=== PATIENT | male | born 1965 | race Caucasian/White ===

== ENCOUNTER 2018-04-20 16:03 | Emergency (ER) | payer OTHER ==
[2018-04-20] MEDS ORDERED: Lidocaine 2% 5 ML SDV ONE (16:45)
[2018-04-20] MEDS ORDERED: Lidocaine 2% 5 ML SDV INFILT ONE (16:59)
--- NOTE | 2018-04-20 17:16 | EDM.PDOC ---
ED HPI GENERAL MEDICAL PROBLEM - General Chief Complaint: General Stated Complaint: TICK IN EAR Time Seen by Provider: 04/20/18 17:11 Source of Information: Reports: Patient History Limitations: Reports: No Limitations - History of Present Illness INITIAL COMMENTS - FREE TEXT/NARRATIVE: Patient is a 52-year-old gentleman who presents emergency department this afternoon with a complaint of left ear discomfort with suspected insect or foreign body. Patient states that symptoms began yesterday and used a Q-tip, but symptoms did not subside. looked in the ear and thought she saw an insect. Patient denies no other visible insects on his body. Patient denies vertigo, fever, chest pain, shortness of breath, nausea, or vomiting. Onset Date: 04/19/18 Duration: Day(s): Location: Reports: Other (Left ear) Quality: Reports: Ache Severity: Mild Improves with: Reports: None Worsens with: Reports: None Context: Reports: Other (Suspected insect) Associated Symptoms: Reports: No Other Symptoms - Related Data Allergies Allergy/AdvReac Type Severity Reaction Status Date / Time No Known Drug Allergies Allergy Cannot Verified 04/20/18 16:16 Remember Home Meds: Home Meds Hydrocort/Neomycin/Polymyxin B [Hufleumh-Fnsidxeym-HM Otic Susp] 10 ml .XX TID 5 Days #1 bottle 04/20/18 [Rx] Past Medical History HEENT History: Reports: Hard of Hearing, Impaired Vision Cardiovascular History: Reports: Bypass, Heart Murmur, High Cholesterol, Hypertension, SOB on Exertion, Other (See Below) Other Cardiovascular History: leaky valves x 3 Respiratory History: Reports: Bronchitis, Recurrent, COPD, Pneumonia, Recurrent , SOB Gastrointestinal History: Reports: Colon Polyp, GERD Genitourinary History: Reports: None Musculoskeletal History: Reports: Arthritis, Back Pain, Chronic, Fracture, Fibromyalgia Neurological History: Reports: Concussion, Neuropathy, Peripheral Psychiatric History: Reports: Anxiety, Depression Endocrine/Metabolic History: Reports: None Hematologic History: Reports: None Immunologic History: Reports: None Oncologic (Cancer) History: Reports: Hodgkin's Lymphoma, Other (See Below) Other Oncologic History: kidney cancer Dermatologic History: Reports: None - Infectious Disease History Infectious Disease History: Reports: Chicken Pox - Past Surgical History HEENT Surgical History: Reports: None Cardiovascular Surgical History: Reports: Coronary Artery Bypass Other Cardiovascular Surgeries/Procedures: CABG X 4 Respiratory Surgical History: Reports: None GI Surgical History: Reports: Appendectomy, Cholecystectomy, Colonoscopy Male Surgical History: Reports: Nephrectomy Other Male Surgeries/Procedures: right nephrectomy Endocrine Surgical History: Reports: None Neurological Surgical History: Reports: Lumbar Spine Musculoskeletal Surgical History: Reports: Carpal Tunnel Oncologic Surgical History: Reports: None Dermatological Surgical History: Reports: None Social & Family History - Family History Family Medical History: Unobtainable - Tobacco Use Smoking Status *Q: Former Smoker Used Tobacco, but Quit: Yes Month/Year Tobacco Last Used: 2012 Second Hand Smoke Exposure: No - Caffeine Use Caffeine Use: Reports: Coffee, Energy Drinks, Soda, Tea - Recreational Drug Use Recreational Drug Use: Yes Recreational Drug Type: Reports: Methamphetamine Recreational Drug Use Frequency: Not Used In Over 6 Months ED ROS GENERAL - Review of Systems Review Of Systems: ROS reveals no pertinent complaints other than HPI. Constitutional: Reports: No Symptoms HEENT: Reports: Ear Pain, Other (Suspected foreign body in left ear) Respiratory: Reports: No Symptoms Cardiovascular: Reports: No Symptoms Endocrine: Reports: No Symptoms GI/Abdominal: Reports: No Symptoms : Reports: No Symptoms Musculoskeletal: Reports: No Symptoms Skin: Reports: No Symptoms Neurological: Reports: No Symptoms Psychiatric: Reports: No Symptoms Hematologic/Lymphatic: Reports: No Symptoms Immunologic: Reports: No Symptoms ED EXAM, GENERAL - Physical Exam Exam: See Below Exam Limited By: No Limitations General Appearance: Alert, WD/WN, No Apparent Distress Eye Exam: Bilateral Eye: Normal Inspection Ears: Normal External Exam, Other (Left ear has scant amount of jian red blood , with scab on the superior portion of the TM. No canal edema or erythema. No body or insect appreciated.) Throat/Mouth: Normal Inspection, Normal Oropharynx, No Airway Compromise Head: Atraumatic, Normocephalic Respiratory/Chest: No Respiratory Distress Neurological: Alert, Oriented, Normal Cognition Psychiatric: Normal Affect, Normal Mood Skin Exam: Warm, Dry, Intact, Normal Color, No Rash Lymphatic: No Adenopathy Course - Vital Signs Last Recorded V/S: Last Vital Signs Temp 96.3 F 04/20/18 16:10 Pulse 73 04/20/18 16:10 Resp 20 04/20/18 16:10 BP 115/65 04/20/18 16:10 Pulse Ox 96 04/20/18 16:10 - Orders/Labs/Meds Meds: Medications Discontinued Medications Generic Name Dose Route Start Last Admin Trade Name Jean Carlos PRN Reason Stop Dose Admin Lidocaine Confirm 04/20/18 16:45 Xylocaine-Mpf 2% Administered 04/20/18 16:46 Dose 5 ml .ROUTE .STK-MED ONE Lidocaine 2 ml 04/20/18 16:59 04/20/18 17:03 Xylocaine-Mpf 2% INFILT 04/20/18 17:00 2 ml ONETIME ONE Administration - Re-Assessments/Exams Free Text/Narrative Re-Assessment/Exam: 04/20/18 17:17 Patient afebrile, nontoxic appearing, vital signs stable, tolerated procedure well. 2 mL lidocaine instilled initially, then 30 mL warmed normal saline instilled for irrigation. Small particles flushed out hard to differentiate whether it was scab or parts of insect. Prescription for Cortisporin otic Departure - Departure Time of Disposition: 17:19 Disposition: Home, Self-Care 01 Condition: Good Clinical Impression: Ear canal abrasion Qualifiers: Encounter type: initial encounter Laterality: left Qualified Code(s): S00.412A - Abrasion of left ear, initial encounter Ear foreign body Qualifiers: Encounter type: initial encounter Laterality: left Qualified Code(s): T16.2XXA - Foreign body in left ear, initial encounter - Discharge Information Instructions: Ear Foreign Body, [id number] Referrals: PCP,Not In Area [Primary Care Provider] - Skylar Garcia MD [Physician] - Additional Instructions: Follow-up with primary care provider. Return to emergency department if symptoms continue or worsen. Take Medication as directed - Assessment/Plan Assessment:: Left ear foreign body removal Plan: Follow-up at clinic in 2-3 days
== END 2018-04-20 17:30 | disposition home or self-care (01) ==
LOC: KA.ED 16:03
DX: T16.2XXA Foreign body in left ear, initial encounter (principal); S00.412A Abrasion of left ear, initial encounter; E78.00 Pure hypercholesterolemia, unspecified; I10 Essential (primary) hypertension; F17.210 Nicotine dependence, cigarettes, uncomplicated; Z87.01 Personal history of pneumonia (recurrent); W45.8XXA Other foreign body or object entering through skin, initial encounter
CPT/HCPCS: 99282

== ENCOUNTER 2018-04-26 12:25 | Observation (INO) | payer OTHER ==
[2018-04-26] MEDS ORDERED: Sodium Chloride 0.9% 5 ML Syringe FLUSH PRN ×2 (12:46→14:53)
[2018-04-26] MEDS ORDERED: Nitroglycerin 0.4 MG Tab.SL ONE (12:49)
[2018-04-26] MEDS ORDERED: Aspirin 81 MG Tab.Chew ONE (12:52)
--- NOTE | 2018-04-26 12:54 | EDM.PDOC ---
ED HPI GENERAL MEDICAL PROBLEM - General Chief Complaint: Chest Pain Stated Complaint: CHEST PAIN Time Seen by Provider: 04/26/18 12:30 Source of Information: Reports: Patient History Limitations: Reports: No Limitations - History of Present Illness INITIAL COMMENTS - FREE TEXT/NARRATIVE: 52 YO WM presents to ER complaining of intermittent substernal chest pain with radiation to left arm x 1 day. Pt reports episodic chest pain over the last 2 months but it became more severe last night due to associated diaphoresis. Pt had CABG x 4 approx 5 years ago. Pt also reports history of valvular disease which is being monitored by cardiology (last seen/2D echo 2 years ago). Pt reports associated shortness of breath but denies nausea or dizziness. Onset: Today Duration: Day(s): (1) Location: Reports: Chest Quality: Reports: Ache Severity: Mild Improves with: Reports: None Worsens with: Reports: None Associated Symptoms: Reports: Chest Pain, Shortness of Breath. Denies: Nausea/ Vomiting, Syncope Left Chest Pain Score (Numeric/FACES): 2 - Related Data Allergies Allergy/AdvReac Type Severity Reaction Status Date / Time No Known Drug Allergies Allergy Cannot Verified 04/20/18 16:16 Remember Home Meds: Home Meds Aspirin [Halfprin] 81 mg PO DAILY 04/26/18 [History] DULoxetine HCl [Duloxetine HCl] 60 mg PO DAILY 04/26/18 [History] Multivitamin [Multi-Vitamin Daily] 1 each PO DAILY 04/26/18 [History] PARoxetine HCl [Paroxetine HCl] 20 mg PO DAILY 04/26/18 [History] Pantoprazole Sodium 40 mg PO DAILY 04/26/18 [History] Pregabalin [Lyrica] 150 mg PO DAILY 04/26/18 [History] Ramipril 5 mg PO DAILY 04/26/18 [History] Rosuvastatin Calcium 10 mg PO DAILY 04/26/18 [History] Past Medical History HEENT History: Reports: Hard of Hearing, Impaired Vision Cardiovascular History: Reports: Bypass, Heart Murmur, High Cholesterol, Hypertension, SOB on Exertion, Other (See Below) Other Cardiovascular History: leaky valves x 3 Respiratory History: Reports: Bronchitis, Recurrent, COPD, Pneumonia, Recurrent , SOB Gastrointestinal History: Reports: Colon Polyp, GERD Genitourinary History: Reports: None Musculoskeletal History: Reports: Arthritis, Back Pain, Chronic, Fracture, Fibromyalgia Neurological History: Reports: Concussion, Neuropathy, Peripheral Psychiatric History: Reports: Anxiety, Depression Endocrine/Metabolic History: Reports: None Hematologic History: Reports: None Immunologic History: Reports: None Oncologic (Cancer) History: Reports: Hodgkin's Lymphoma, Other (See Below) Other Oncologic History: kidney cancer Dermatologic History: Reports: None - Infectious Disease History Infectious Disease History: Reports: Chicken Pox - Past Surgical History HEENT Surgical History: Reports: None Cardiovascular Surgical History: Reports: Coronary Artery Bypass Other Cardiovascular Surgeries/Procedures: CABG X 4 Respiratory Surgical History: Reports: None GI Surgical History: Reports: Appendectomy, Cholecystectomy, Colonoscopy Male Surgical History: Reports: Nephrectomy Other Male Surgeries/Procedures: right nephrectomy Endocrine Surgical History: Reports: None Neurological Surgical History: Reports: Lumbar Spine Musculoskeletal Surgical History: Reports: Carpal Tunnel Oncologic Surgical History: Reports: None Dermatological Surgical History: Reports: None Social & Family History - Family History Family Medical History: Unobtainable - Caffeine Use Caffeine Use: Reports: Coffee, Energy Drinks, Soda, Tea ED ROS GENERAL - Review of Systems Review Of Systems: See Below Constitutional: Reports: No Symptoms HEENT: Reports: No Symptoms Respiratory: Reports: Shortness of Breath Cardiovascular: Reports: Chest Pain Endocrine: Reports: No Symptoms GI/Abdominal: Reports: No Symptoms : Reports: No Symptoms Musculoskeletal: Reports: No Symptoms Skin: Reports: No Symptoms Neurological: Reports: No Symptoms Psychiatric: Reports: No Symptoms Hematologic/Lymphatic: Reports: No Symptoms Immunologic: Reports: No Symptoms ED EXAM, GENERAL - Physical Exam Exam: See Below Exam Limited By: No Limitations General Appearance: Alert, WD/WN, No Apparent Distress Head: Atraumatic, Normocephalic Neck: Normal Inspection, Supple, Non-Tender, Full Range of Motion Respiratory/Chest: No Respiratory Distress, Lungs Clear, Normal Breath Sounds, No Accessory Muscle Use, Chest Non-Tender Cardiovascular: Normal Peripheral Pulses, Regular Rate, Rhythm, No Edema, No JVD , No Rub, Systolic Murmur GI/Abdominal: Normal Bowel Sounds, Soft, Non-Tender, No Organomegaly, No Distention, No Abnormal Bruit, No Mass Back Exam: Normal Inspection, Full Range of Motion, NT Extremities: Normal Inspection, Normal Range of Motion, Non-Tender, Normal Capillary Refill, No Pedal Edema Neurological: Alert, Oriented, CN II-XII Intact, Normal Cognition, Normal Gait, Normal Reflexes, No Motor/Sensory Deficits Psychiatric: Normal Affect, Normal Mood Skin Exam: Warm, Dry, Intact, Normal Color, No Rash Lymphatic: No Adenopathy EKG INTERPRETATION EKG Date: 04/26/18 Time: 12:38 Rhythm: NSR Rate (Beats/Min): 80 [place]: Normal P-Wave: Present QRS: Normal ST-T: Normal QT: Normal Comparison: NA - No Prior EKG Course - Vital Signs Last Recorded V/S: Last Vital Signs Temp 37.1 C 04/26/18 12:44 Pulse 84 04/26/18 13:40 Resp 18 04/26/18 13:40 BP 150/85 H 04/26/18 13:40 Pulse Ox 96 04/26/18 13:40 - Orders/Labs/Meds Orders: Active Orders 24 hr Category Date Time Status Cardiac Monitoring [RC] . DIRECTED Care 04/26/18 12:46 Active EKG Documentation Completion [RC] ASDIRECTED Care 04/26/18 12:44 Active Oxygen Therapy Adult [Oxygen Therapy, ED] [RC] Care 04/26/18 12:46 Active ASDIRECTED Peripheral IV Care [RC] . DIRECTED Care 04/26/18 12:47 Active Chest 2V [CR] Stat Exams 04/26/18 12:46 Taken Sodium Chloride 0.9% [Syrex Flush] Med 04/26/18 12:46 Active 5 ml FLUSH Q8HR PRN Peripheral IV Insertion Adult [OM.PC] Routine Oth 04/26/18 12:46 Ordered EKG 12 Lead [EK] Routine Ther 04/26/18 12:35 Ordered Medication Orders Sodium Chloride (Syrex Flush) 5 ml FLUSH Q8HR PRN PRN Reason: Keep Vein Open Labs: Laboratory Tests 04/26/18 04/26/18 04/26/18 Range/Units 13:10 13:10 13:10 WBC 9.1 (5.0-10.0) 10^3/uL RBC 4.58 (4.50-6.00) 10^6/uL Hgb 14.1 (13.0-17.0) g/dL Hct 42.0 (40.0-52.0) % MCV 91.8 (82.0-92.0) fL MCH 30.7 (27.0-31.0) pg MCHC 33.5 (32.0-36.0) g/dL RDW 13.2 (11.5-14.5) % Plt Count 366 H (150-300) 10^3/uL MPV 8.2 (7.4-10.4) fL Neut % (Auto) 58.4 (50.0-70.0) % Lymph % (Auto) 26.6 (20.0-40.0) % Hand % (Auto) 8.1 H (2.0-8.0) % Eos % (Auto) 6.1 H (1.0-3.0) % Baso % (Auto) 0.8 (0.0-1.0) % Neut # (Auto) 5.3 (2.5-7.0) 10^3/uL Lymph # (Auto) 2.4 (1.0-4.0) 10^3/uL Hand # (Auto) 0.7 (0.1-0.8) 10^3/uL Eos # (Auto) 0.6 H (0.1-0.3) 10^3/uL Baso # (Auto) 0.1 (0.0-0.1) 10^3/uL PT 9.0 (8.9-11.4) SEC INR 0.9 (0.9-1.1) APTT 20.7 L (20.8-31.2) SEC Sodium 145 (136-145) mmol/L Potassium 4.1 (3.3-5.3) mmol/L Chloride 108 (98-115) mmol/L Carbon Dioxide 30.0 (21.0-32.0) mmol/L BUN 12 (6-25) mg/dL Creatinine 1.02 (0.51-1.17) mg/dL Est Cr Clr Drug Dosing 90.87 mL/min Estimated GFR (MDRD) > 60 mL/min Glucose 96 (70-110) mg/dL Calcium 8.7 (8.7-10.3) mg/dL Total Bilirubin 0.3 (0.2-1.0) mg/dL AST 17 (15-37) U/L ALT 21 (12-78) U/L Alkaline Phosphatase 81 (46-116) IU/L Creatine Kinase 141 (26-276) U/L CK-MB (CK-2) 1.30 (0.00-4.30) ng/mL Troponin I < 0.04 (0.00-0.070) ng/mL Total Protein 7.2 (6.4-8.2) g/dL Albumin 3.57 (3.00-4.80) g/dL Meds: Medications Generic Name Dose Route Start Last Admin Trade Name Freq PRN Reason Stop Dose Admin Sodium Chloride 5 ml 04/26/18 12:46 Syrex Flush FLUSH Q8HR PRN Keep Vein Open Discontinued Medications Generic Name Dose Route Start Last Admin Trade Name Freq PRN Reason Stop Dose Admin Aspirin 271 mg 04/26/18 12:55 04/26/18 12:58 Aspirin PO 04/26/18 12:56 273 mg ONETIME ONE Administration Aspirin Confirm 04/26/18 12:52 04/26/18 13:04 Aspirin Administered 04/26/18 12:53 Not Given Dose 243 mg .ROUTE .STK-MED ONE Nitroglycerin Confirm 04/26/18 12:49 04/26/18 12:56 Nitrostat Administered 04/26/18 12:50 0.4 mg Dose Administration 0.4 mg .ROUTE .STK-MED ONE Nitroglycerin 1 gm 04/26/18 12:55 04/26/18 13:04 Nitro-Bid 2% TOP 04/26/18 12:56 1 gm ONETIME ONE Administration Nitroglycerin 0.4 mg 04/26/18 12:55 04/26/18 12:57 Nitrostat SL 04/26/18 12:56 Not Given ONETIME ONE - Radiology Interpretation Free Text/Narrative:: CXR- NAD Departure - Departure Time of Disposition: 14:46 Disposition: Refer to Observation Condition: Fair Clinical Impression: Chest pain Qualifiers: Chest pain type: unspecified Qualified Code(s): R07.9 - Chest pain, unspecified Referrals: PCP,Not In Area [Primary Care Provider] - Forms: ED Department Discharge - My Orders Last 24 Hours: My Active Orders 04/26/18 12:35 EKG 12 Lead [EK] Routine 04/26/18 12:44 EKG Documentation Completion [RC] ASDIRECTED 04/26/18 12:46 Cardiac Monitoring [RC] . DIRECTED Oxygen Therapy Adult [Oxygen Therapy, ED] [RC] ASDIRECTED Chest 2V [CR] Stat Sodium Chloride 0.9% [Syrex Flush] 5 ml FLUSH Q8HR PRN Peripheral IV Insertion Adult [OM.PC] Routine 04/26/18 12:47 Peripheral IV Care [RC] . DIRECTED - Assessment/Plan Last 24 Hours: My Active Orders 04/26/18 12:35 EKG 12 Lead [EK] Routine 04/26/18 12:44 EKG Documentation Completion [RC] ASDIRECTED 04/26/18 12:46 Cardiac Monitoring [RC] . DIRECTED Oxygen Therapy Adult [Oxygen Therapy, ED] [RC] ASDIRECTED Chest 2V [CR] Stat Sodium Chloride 0.9% [Syrex Flush] 5 ml FLUSH Q8HR PRN Peripheral IV Insertion Adult [OM.PC] Routine 04/26/18 12:47 Peripheral IV Care [RC] . DIRECTED Assessment:: 1. Chest Pain- Angina Plan: 1. Admit for 23 hour Obs- Dr Skylar Stewart 2. trop I Q6 3. nitro/ASA 4. oxygen and supportive care
[2018-04-26] MEDS ORDERED: Nitroglycerin 2% Oint 1 GM UD Packet TOP ONE (12:55)
[2018-04-26] MEDS ORDERED: Nitroglycerin 0.4 MG Tab.SL SL ONE (12:55)
[2018-04-26] MEDS ORDERED: Aspirin 81 MG Tab.Chew PO ONE (12:55)
[2018-04-26 14:02] LABS: CHLORIDE,CL 108 mmol/L (98-115); SODIUM,NA 145 mmol/L (136-145)
[2018-04-26] MEDS ORDERED: Morphine 2 MG/ML Syringe IVPUSH PRN (14:53)
[2018-04-26] MEDS ORDERED: Atropine 0.1 MG/ML 10 ML Syringe IVPUSH PRN (15:37)
[2018-04-26] MEDS ORDERED: EPINEPHrine 1:10,000 1 MG/10 ML Syringe IVPUSH PRN (15:37)
[2018-04-26] MEDS ORDERED: Lidocaine 2% 100 MG/5 ML Syringe IVPUSH PRN (15:37)
[2018-04-26] MEDS ORDERED: Nitroglycerin 0.4 MG Tab.SL SL PRN (15:37)
[2018-04-26] MEDS: Nitroglycerin 2% Oint 1 GM UD Packet TOP SCH ×2 (16:47→21:08)
[2018-04-26] MEDS ORDERED: Acetaminophen 325 MG Tab PO PRN (17:14)
[2018-04-26] MEDS ORDERED: Albuterol HFA 18 Gm Inhaler INH PRN (18:30)
[2018-04-26] MEDS: Carvedilol 12.5 MG Tab PO SCH (19:14)
[2018-04-26] MEDS ORDERED: Pregabalin 100 MG Cap ONE (21:13)
[2018-04-26] MEDS ORDERED: Pregabalin 25 MG Cap ONE (21:17)
[2018-04-27] MEDS: Nitroglycerin 2% Oint 1 GM UD Packet TOP SCH ×2 (02:18→08:53)
[2018-04-27] MEDS ORDERED: Pantoprazole 40 MG Tab.CR PO SCH (07:30)
[2018-04-27 08:15] LABS: CHLORIDE,CL 107 mmol/L (98-115); SODIUM,NA 145 mmol/L (136-145)
--- NOTE | 2018-04-27 08:44 | PCM.DCSUM1 ---
Discharge Summary - Hospital Course Free Text/Narrative:: Simon is being discharged from an observation stay from 04/26/18 - 04/27/18 for chest pain rule out. He has a hx of CAD with a CABG x 4 five years ago. He states over the past 2 months he has had some exertional chest pain and the day he presented to the ER it was associated with some nausea, diaphoresis and SOB. EKG was WNL, troponin has been negative x 3. He will be discharged to home with follow-up with PCP to schedule an outpatient stress test. No medication changes but will discharge with nitroglycerin sublingual. Diagnosis: Stroke: No - Discharge Data Discharge Date: 04/27/18 Discharge Disposition: Home, Self-Care 01 Condition: Good - Patient Summary/Data Complications: No complications. Consults: No consultations. Labs Pending at D/C: No labs pending. Recommended Follow-up Testing/Procedures: Follow-up with PCP within 1 week to establish care and to get scheduled for an outpatient stress test. - Patient Instructions Diet: Heart Healthy Diet Activity: As Tolerated Other/Special Instructions: Present to the ER for symptomatic chest pain with associated symptoms of nausea, vomiting, shortness of breath, sweating that are not going away. - Discharge Plan Prescriptions/Med Rec: Nitroglycerin [Nitrostat] 0.4 mg SL ASDIRECTED PRN #30 tab.sl PRN Reason: Heart Home Medications: Home Meds Albuterol Sulfate [Proair Hfa] 2 puff INH Q6H PRN 04/26/18 [History] Aspirin [Halfprin] 81 mg PO DAILY 04/26/18 [History] Carvedilol 25 mg PO BIDMEALS 04/26/18 [History] DULoxetine HCl [Duloxetine HCl] 60 mg PO DAILY 04/26/18 [History] Multivitamin [Multi-Vitamin Daily] 1 each PO DAILY 04/26/18 [History] PARoxetine HCl [Paroxetine HCl] 20 mg PO DAILY 04/26/18 [History] Pantoprazole Sodium 40 mg PO ACBREAKFAST 04/26/18 [History] Pregabalin [Lyrica] 150 mg PO DAILY 04/26/18 [History] Ramipril 5 mg PO DAILY 04/26/18 [History] Rosuvastatin Calcium 10 mg PO DAILY 04/26/18 [History] Nitroglycerin [Nitrostat] 0.4 mg SL ASDIRECTED PRN #30 tab.sl 04/27/18 [Rx] Forms: ED Department Discharge Referrals: PCP,Not In Area [Primary Care Provider] - - General Info Date of Service: 04/27/18 Admission Dx/Problem (Free Text: Chest pain - Review of Systems Systems Review Comment: 10 point ROS obtained, all pertinent positives listed in HPI, all other systems are negative. - Patient Data Vitals - Most Recent: Last Vital Signs Temp 97.0 F 04/27/18 06:52 Pulse 72 04/27/18 06:52 Resp 16 04/27/18 06:52 BP 116/78 04/27/18 06:52 Pulse Ox 95 04/27/18 06:52 Weight - Most Recent: 202 lb I&O - Last 24 hours: Intake & Output 04/26/18 04/27/18 04/27/18 22:59 06:59 14:59 Intake Total 720 240 Output Total 500 Balance 220 240 Lab Results - Last 24 hrs: Laboratory Results - last 24 hr 04/26/18 04/26/18 04/26/18 Range/Units 13:10 13:10 13:10 WBC 9.1 (5.0-10.0) 10^3/uL RBC 4.58 (4.50-6.00) 10^6/uL Hgb 14.1 (13.0-17.0) g/dL Hct 42.0 (40.0-52.0) % MCV 91.8 (82.0-92.0) fL MCH 30.7 (27.0-31.0) pg MCHC 33.5 (32.0-36.0) g/dL RDW 13.2 (11.5-14.5) % Plt Count 366 H (150-300) 10^3/uL MPV 8.2 (7.4-10.4) fL Neut % (Auto) 58.4 (50.0-70.0) % Lymph % (Auto) 26.6 (20.0-40.0) % Wirt % (Auto) 8.1 H (2.0-8.0) % Eos % (Auto) 6.1 H (1.0-3.0) % Baso % (Auto) 0.8 (0.0-1.0) % Neut # (Auto) 5.3 (2.5-7.0) 10^3/uL Lymph # (Auto) 2.4 (1.0-4.0) 10^3/uL Wirt # (Auto) 0.7 (0.1-0.8) 10^3/uL Eos # (Auto) 0.6 H (0.1-0.3) 10^3/uL Baso # (Auto) 0.1 (0.0-0.1) 10^3/uL PT 9.0 (8.9-11.4) SEC INR 0.9 (0.9-1.1) APTT 20.7 L (20.8-31.2) SEC Sodium 145 (136-145) mmol/L Potassium 4.1 (3.3-5.3) mmol/L Chloride 108 (98-115) mmol/L Carbon Dioxide 30.0 (21.0-32.0) mmol/L BUN 12 (6-25) mg/dL Creatinine 1.02 (0.51-1.17) mg/dL Est Cr Clr Drug Dosing 90.87 mL/min Estimated GFR (MDRD) > 60 mL/min Glucose 96 (70-110) mg/dL Calcium 8.7 (8.7-10.3) mg/dL Total Bilirubin 0.3 (0.2-1.0) mg/dL AST 17 (15-37) U/L ALT 21 (12-78) U/L Alkaline Phosphatase 81 (46-116) IU/L Creatine Kinase 141 (26-276) U/L CK-MB (CK-2) 1.30 (0.00-4.30) ng/mL Troponin I < 0.04 (0.00-0.070) ng/mL Total Protein 7.2 (6.4-8.2) g/dL Albumin 3.57 (3.00-4.80) g/dL 04/26/18 04/27/18 04/27/18 Range/Units 18:20 02:05 07:25 WBC (5.0-10.0) 10^3/uL RBC (4.50-6.00) 10^6/uL Hgb (13.0-17.0) g/dL Hct (40.0-52.0) % MCV (82.0-92.0) fL MCH (27.0-31.0) pg MCHC (32.0-36.0) g/dL RDW (11.5-14.5) % Plt Count (150-300) 10^3/uL MPV (7.4-10.4) fL Neut % (Auto) (50.0-70.0) % Lymph % (Auto) (20.0-40.0) % Wirt % (Auto) (2.0-8.0) % Eos % (Auto) (1.0-3.0) % Baso % (Auto) (0.0-1.0) % Neut # (Auto) (2.5-7.0) 10^3/uL Lymph # (Auto) (1.0-4.0) 10^3/uL Wirt # (Auto) (0.1-0.8) 10^3/uL Eos # (Auto) (0.1-0.3) 10^3/uL Baso # (Auto) (0.0-0.1) 10^3/uL PT (8.9-11.4) SEC INR (0.9-1.1) APTT (20.8-31.2) SEC Sodium 145 (136-145) mmol/L Potassium 3.9 (3.3-5.3) mmol/L Chloride 107 (98-115) mmol/L Carbon Dioxide 28.3 (21.0-32.0) mmol/L BUN 14 (6-25) mg/dL Creatinine 1.14 (0.51-1.17) mg/dL Est Cr Clr Drug Dosing 81.31 mL/min Estimated GFR (MDRD) > 60 mL/min Glucose 104 (70-110) mg/dL Calcium 8.4 L (8.7-10.3) mg/dL Total Bilirubin (0.2-1.0) mg/dL AST (15-37) U/L ALT (12-78) U/L Alkaline Phosphatase (46-116) IU/L Creatine Kinase (26-276) U/L CK-MB (CK-2) (0.00-4.30) ng/mL Troponin I < 0.04 < 0.04 < 0.04 (0.00-0.070) ng/mL Total Protein (6.4-8.2) g/dL Albumin (3.00-4.80) g/dL Med Orders - Current: Current Medications Acetaminophen (Tylenol) 325 - 650 mg PO Q4H PRN PRN Reason: Pain Last Admin: 04/26/18 17:43 Dose: 650 mg Albuterol (Ventolin Hfa) 0 gm INH Q6H PRN PRN Reason: Shortness of Breath Aspirin (Halfprin) 81 mg PO DAILY [facility] Atropine Sulfate (Atropine 0.1 Mg/Ml) 0 mg IVPUSH ASDIRECTED PRN PRN Reason: Heart Carvedilol (Coreg) 25 mg PO BIDMEALS [facility] Last Admin: 04/26/18 19:14 Dose: 25 mg Duloxetine HCl (Cymbalta) 60 mg PO DAILY [facility] Epinephrine HCl (Epinephrine 1:10,000) 1 mg IVPUSH ASDIRECTED PRN PRN Reason: Heart Lidocaine HCl (Xylocaine 2%) 0 mg IVPUSH ASDIRECTED PRN PRN Reason: Heart Morphine Sulfate (Morphine) 2 mg IVPUSH Q2H PRN PRN Reason: Pain (severe 7-10) Multivitamins/Minerals (Centrum) 1 tab PO DAILY [facility] Nitroglycerin (Nitro-Bid 2%) 1 gm TOP Q6H [facility] Last Admin: 04/27/18 02:18 Dose: Not Given Nitroglycerin (Nitrostat) 0.4 mg SL ASDIRECTED PRN PRN Reason: Heart Pantoprazole Sodium (Protonix) 40 mg PO ACBREAKFAST [facility] Last Admin: 04/27/18 07:33 Dose: 40 mg Paroxetine HCl (Paxil) 20 mg PO DAILY [facility] Pregabalin (Lyrica) 150 mg PO BEDTIME [facility] Ramipril (Altace) 5 mg PO DAILY [facility] Rosuvastatin Calcium (Crestor) 10 mg PO DAILY [facility] Sodium Chloride (Syrex Flush) 5 ml FLUSH Q8HR PRN PRN Reason: Keep Vein Open Last Admin: 04/26/18 21:28 Dose: 5 ml Discontinued Medications Aspirin (Aspirin) 271 mg PO ONETIME ONE Stop: 04/26/18 12:56 Last Admin: 04/26/18 12:58 Dose: 273 mg Aspirin (Aspirin) Confirm Administered Dose 243 mg .ROUTE .STK-MED ONE Stop: 04/26/18 12:53 Last Admin: 04/26/18 13:04 Dose: Not Given Aspirin (Ecotrin) 325 mg PO DAILY [facility] Nitroglycerin (Nitrostat) Confirm Administered Dose 0.4 mg .ROUTE .STK-MED ONE Stop: 04/26/18 12:50 Last Admin: 04/26/18 12:56 Dose: 0.4 mg Nitroglycerin (Nitro-Bid 2%) 1 gm TOP ONETIME ONE Stop: 04/26/18 12:56 Last Admin: 04/26/18 13:04 Dose: 1 gm Nitroglycerin (Nitrostat) 0.4 mg SL ONETIME ONE Stop: 04/26/18 12:56 Last Admin: 04/26/18 12:57 Dose: Not Given Pregabalin (Lyrica) 150 mg PO DAILY [facility] Last Admin: 04/26/18 21:14 Dose: 150 mg Pregabalin (Lyrica) Confirm Administered Dose 200 mg .ROUTE .STK-MED ONE Stop: 04/26/18 21:14 Last Admin: 04/26/18 21:24 Dose: Not Given Pregabalin (Lyrica) Confirm Administered Dose 50 mg .ROUTE .STK-MED ONE Stop: 04/26/18 21:18 Last Admin: 04/26/18 21:24 Dose: Not Given Sodium Chloride (Syrex Flush) 5 ml FLUSH Q8HR PRN PRN Reason: Keep Vein Open Last Admin: 04/26/18 13:45 Dose: 5 ml - Exam General: Reports: Alert, Oriented, Cooperative, No Acute Distress Lungs: Reports: Normal Respiratory Effort, Wheezing (Mild end expiratory wheezing in all lung chaudhari, no rales.) Cardiovascular: Reports: Regular Rate, Regular Rhythm, Murmurs (2/6 systolic murmur that is known to the patient. ) GI/Abdominal Exam: Normal Bowel Sounds, Soft, Non-Tender Extremities: Normal Inspection, No Pedal Edema
[2018-04-27] MEDS: Carvedilol 12.5 MG Tab PO SCH (08:54)
[2018-04-27] MEDS ORDERED: Multivitamins with Minerals/Iron/Folic Acid/Lycopene Tab PO SCH (09:00)
[2018-04-27] MEDS ORDERED: Rosuvastatin 10 MG Tab PO SCH (09:00)
[2018-04-27] MEDS ORDERED: Aspirin 81 MG Tab.EC PO SCH (09:00)
[2018-04-27] MEDS ORDERED: PARoxetine 20 MG Tab PO SCH (09:00)
[2018-04-27] MEDS ORDERED: DULoxetine 30 MG Cap PO SCH (09:00)
[2018-04-27] MEDS ORDERED: Aspirin 325 MG Tab.EC PO SCH (09:00)
[2018-04-27] MEDS ORDERED: Pregabalin 25 MG Cap PO SCH ×2 (09:00→21:00)
[2018-04-27] MEDS ORDERED: Pregabalin 100 MG Cap PO ONE (09:15)
[2018-04-27] MEDS ORDERED: Pregabalin 25 MG Cap PO ONE (09:15)
== END 2018-04-27 09:50 | disposition home or self-care (01) ==
LOC: KA.ED 12:25 → KA.MS 14:47 → UNDODISOB 04-27 09:50
PROVIDERS: ADMIT Physician Assistant Medical; ATTEND Internal Medicine
DX: R07.9 Chest pain, unspecified (principal); E78.00 Pure hypercholesterolemia, unspecified; I10 Essential (primary) hypertension; J44.9 Chronic obstructive pulmonary disease, unspecified; K21.9 Gastro-esophageal reflux disease without esophagitis; M19.90 Unspecified osteoarthritis, unspecified site; M79.7 Fibromyalgia; F32.9 Major depressive disorder, single episode, unspecified; G62.9 Polyneuropathy, unspecified; C81.90 Hodgkin lymphoma, unspecified, unspecified site; Z79.82 Long term (current) use of aspirin; Z79.899 Other long term (current) drug therapy
CPT/HCPCS: 36415; 71046; 80048; 80053; 82550; 82553; 84484; 85025; 85610; 85730; 93005; 99285; A9270; G0378

== ENCOUNTER 2018-06-27 13:30 | Emergency (ER) | payer OTHER ==
[2018-06-27] MEDS ORDERED: Sodium Chloride 0.9% 5 ML Syringe FLUSH PRN (14:04)
[2018-06-27] MEDS ORDERED: Sodium Chloride 0.9% 1,000 ML IV ONE (14:04)
[2018-06-27] MEDS ORDERED: Dexamethasone 4 MG/ML SDV IVPUSH ONE (14:05)
[2018-06-27] MEDS ORDERED: Lidocaine 1% 20 ML MDV ONE (14:23)
[2018-06-27] MEDS ORDERED: Albuterol/Ipratropium 3.0-0.5 MG/3 ML Neb Soln ONE (14:57)
[2018-06-27] MEDS ORDERED: Albuterol/Ipratropium 3.0-0.5 MG/3 ML Neb Soln NEB ONE (15:01)
[2018-06-27 15:11] LABS: ANION GAP 9.4 mmol/L (5-15); CHLORIDE,CL 104 mmol/L (98-115); SODIUM,NA 138 mmol/L (136-145)
--- NOTE | 2018-06-27 15:18 | EDM.PDOC ---
ED HPI GENERAL MEDICAL PROBLEM - General Chief Complaint: Respiratory Problem Stated Complaint: shortness of breath Time Seen by Provider: 06/27/18 14:03 Source of Information: Reports: Patient History Limitations: Reports: No Limitations - History of Present Illness INITIAL COMMENTS - FREE TEXT/NARRATIVE: Patient is a 53-year-old gentleman who presents to the emergency department this afternoon with a complaint of shortness of breath, losing voice, and cough. Patient states symptoms began about 4 days ago. Progressively gotten worse. Even though he has been doing breathing treatments 4 times a day. Patient had similar symptoms one month ago and was seen at the [facility]. Given corticosteroids and Levaquin at that time and symptoms resolved. Patient denies chest pain, fever, lower extremity edema, nausea, vomiting, diarrhea. Onset: Gradual Duration: Day(s): Severity: Mild Improves with: Reports: Medication Worsens with: Reports: None Associated Symptoms: Reports: Other (Sore throat) - Related Data Allergies Allergy/AdvReac Type Severity Reaction Status Date / Time No Known Drug Allergies Allergy Cannot Verified 04/27/18 14:27 Remember Home Meds: Home Meds Albuterol Sulfate [Proair Hfa] 2 puff INH Q6H PRN 04/26/18 [History] Aspirin [Halfprin] 81 mg PO DAILY 04/26/18 [History] Carvedilol 25 mg PO BIDMEALS 04/26/18 [History] DULoxetine HCl [Duloxetine HCl] 60 mg PO DAILY 04/26/18 [History] Multivitamin [Multi-Vitamin Daily] 1 each PO DAILY 04/26/18 [History] PARoxetine HCl [Paroxetine HCl] 20 mg PO DAILY 04/26/18 [History] Pantoprazole Sodium 40 mg PO ACBREAKFAST 04/26/18 [History] Pregabalin [Lyrica] 150 mg PO BID 04/26/18 [History] Ramipril 5 mg PO DAILY 04/26/18 [History] Rosuvastatin Calcium 10 mg PO DAILY 04/26/18 [History] Nitroglycerin [Nitrostat] 0.4 mg SL ASDIRECTED PRN #30 tab.sl 04/27/18 [Rx] Albuterol/Ipratropium [DuoNeb 3.0-0.5 MG/3 ML] 1 ampule INH Q4H 06/27/18 [ History] levoFLOXacin [Levaquin] 750 mg PO DAILY #7 tab 06/27/18 [Rx] predniSONE [Prednisone] 20 mg PO DAILY #42 tablet 06/27/18 [Rx] Past Medical History HEENT History: Reports: Hard of Hearing, Impaired Vision Cardiovascular History: Reports: Bypass, Heart Murmur, High Cholesterol, Hypertension, SOB on Exertion, Other (See Below) Other Cardiovascular History: leaky valves x 3 Respiratory History: Reports: Bronchitis, Recurrent, COPD, Pneumonia, Recurrent , SOB Gastrointestinal History: Reports: Colon Polyp, GERD Genitourinary History: Reports: None Musculoskeletal History: Reports: Arthritis, Back Pain, Chronic, Fracture, Fibromyalgia Neurological History: Reports: Concussion, Neuropathy, Peripheral Psychiatric History: Reports: Anxiety, Depression Endocrine/Metabolic History: Reports: None Hematologic History: Reports: None Immunologic History: Reports: None Oncologic (Cancer) History: Reports: Hodgkin's Lymphoma, Other (See Below) Other Oncologic History: kidney cancer Dermatologic History: Reports: None - Infectious Disease History Infectious Disease History: Reports: Chicken Pox - Past Surgical History HEENT Surgical History: Reports: None Cardiovascular Surgical History: Reports: Coronary Artery Bypass Other Cardiovascular Surgeries/Procedures: CABG X 4 Respiratory Surgical History: Reports: None GI Surgical History: Reports: Appendectomy, Cholecystectomy, Colonoscopy Male Surgical History: Reports: Nephrectomy Other Male Surgeries/Procedures: right nephrectomy Endocrine Surgical History: Reports: None Neurological Surgical History: Reports: Lumbar Spine Musculoskeletal Surgical History: Reports: Carpal Tunnel Oncologic Surgical History: Reports: None Dermatological Surgical History: Reports: None Social & Family History - Family History Family Medical History: Unobtainable Cardiac: Reports: [place], Stent Respiratory: Reports: COPD Musculoskeletal: Reports: Arthritis, Fibromyalgia Neurological: Reports: Neuropathy, Peripheral Psychiatric: Reports: Depression Endocrine/Metabolic: Reports: Diabetes, type II Oncologic: Reports: Liver - Caffeine Use Caffeine Use: Reports: Coffee, Energy Drinks, Tea ED ROS GENERAL - Review of Systems Review Of Systems: ROS reveals no pertinent complaints other than HPI. Constitutional: Reports: Fatigue HEENT: Reports: Throat Pain Respiratory: Reports: Shortness of Breath, Wheezing, Cough, Sputum Cardiovascular: Reports: No Symptoms Endocrine: Reports: No Symptoms GI/Abdominal: Reports: No Symptoms : Reports: No Symptoms Musculoskeletal: Reports: No Symptoms Skin: Reports: No Symptoms Neurological: Reports: No Symptoms, Change in Speech (Green) Psychiatric: Reports: No Symptoms Hematologic/Lymphatic: Reports: No Symptoms Immunologic: Reports: No Symptoms ED EXAM, GENERAL - Physical Exam Exam: See Below Exam Limited By: No Limitations General Appearance: Alert, WD/WN, No Apparent Distress Eye Exam: Bilateral Eye: Normal Inspection Nose: Normal Inspection, Normal Mucosa, No Blood Throat/Mouth: Normal Inspection, Normal Lips, Normal Oropharynx, No Airway Compromise, Other (Raspy voice) Neck: Normal Inspection, Supple, Non-Tender, Full Range of Motion. No: Lymphadenopathy (L), Lymphadenopathy (R) Respiratory/Chest: No Respiratory Distress, Lungs Clear, Normal Breath Sounds, No Accessory Muscle Use, Chest Non-Tender Cardiovascular: Normal Peripheral Pulses, Regular Rate, Rhythm, Systolic Murmur GI/Abdominal: Normal Bowel Sounds, Soft, Non-Tender Back Exam: Normal Inspection, Full Range of Motion. No: CVA Tenderness (L), CVA Tenderness (R) Extremities: Normal Inspection, No Pedal Edema Neurological: Alert, Oriented, Normal Cognition Psychiatric: Normal Affect, Normal Mood Skin Exam: Warm, Dry, Intact, Normal Color, No Rash Lymphatic: No Adenopathy Course - Vital Signs Last Recorded V/S: Last Vital Signs Temp 97.7 F 06/27/18 13:38 Pulse 89 06/27/18 13:38 Resp 16 06/27/18 13:38 BP 129/68 06/27/18 13:38 Pulse Ox 91 L 06/27/18 13:38 - Orders/Labs/Meds Orders: Active Orders 24 hr Category Date Time Status Peripheral IV Care [RC] . DIRECTED Care 06/27/18 14:05 Ordered RT Aerosol Therapy [RC] ASDIRECTED Care 06/27/18 15:02 Ordered Chest 2V [CR] Stat Exams 06/27/18 13:47 Taken Sodium Chloride 0.9% [Syrex Flush] Med 06/27/18 14:04 Ordered 5 ml FLUSH Q8HR PRN Peripheral IV Insertion Adult [OM.PC] Urgent Oth 06/27/18 14:04 Ordered Medication Orders Sodium Chloride (Syrex Flush) 5 ml FLUSH Q8HR PRN PRN Reason: Keep Vein Open Labs: Laboratory Tests 06/27/18 06/27/18 06/27/18 Range/Units 14:45 14:45 14:45 WBC 10.6 H (5.0-10.0) 10^3/uL RBC 4.61 (4.50-6.00) 10^6/uL Hgb 14.2 (13.0-17.0) g/dL Hct 42.7 (40.0-52.0) % MCV 92.6 H (82.0-92.0) fL MCH 30.9 (27.0-31.0) pg MCHC 33.4 (32.0-36.0) g/dL RDW 13.4 (11.5-14.5) % Plt Count 413 H (150-300) 10^3/uL MPV 8.0 (7.4-10.4) fL Neut % (Auto) 57.0 (50.0-70.0) % Lymph % (Auto) 20.4 (20.0-40.0) % Davie % (Auto) 6.4 (2.0-8.0) % Eos % (Auto) 15.7 H (1.0-3.0) % Baso % (Auto) 0.5 (0.0-1.0) % Neut # (Auto) 5.9 (2.5-7.0) 10^3/uL Lymph # (Auto) 2.2 (1.0-4.0) 10^3/uL Davie # (Auto) 0.7 (0.1-0.8) 10^3/uL Eos # (Auto) 1.7 H (0.1-0.3) 10^3/uL Baso # (Auto) 0.1 (0.0-0.1) 10^3/uL Sodium 138 (136-145) mmol/L Potassium 3.2 L (3.3-5.3) mmol/L Chloride 104 (98-115) mmol/L Carbon Dioxide 27.8 (21.0-32.0) mmol/L Anion Gap 9.4 (5-15) mmol/L BUN 24 (6-25) mg/dL Creatinine 1.08 (0.51-1.17) mg/dL Est Cr Clr Drug Dosing 84.83 mL/min Estimated GFR (MDRD) > 60 mL/min Glucose 132 mg/dL Calcium 8.1 L (8.7-10.3) mg/dL Total Bilirubin 0.3 (0.2-1.0) mg/dL AST 16 (15-37) U/L ALT 33 (12-78) U/L Alkaline Phosphatase 95 (46-116) IU/L B-Natriuretic Peptide 120 H (0-100) pg/mL Total Protein 6.9 (6.4-8.2) g/dL Albumin 3.16 (3.00-4.80) g/dL Meds: Medications Generic Name Dose Route Start Last Admin Trade Name Freq PRN Reason Stop Dose Admin Sodium Chloride 5 ml 06/27/18 14:04 Syrex Flush FLUSH Q8HR PRN Keep Vein Open Discontinued Medications Generic Name Dose Route Start Last Admin Trade Name Freq PRN Reason Stop Dose Admin Albuterol/Ipratropium Confirm 06/27/18 14:57 Duoneb 3.0-0.5 Mg/3 Ml Administered 06/27/18 14:58 Dose 3 ml .ROUTE .STK-MED ONE Albuterol/Ipratropium 3 ml 06/27/18 15:01 Duoneb 3.0-0.5 Mg/3 Ml NEB 06/27/18 15:02 ONETIME ONE Dexamethasone 8 mg 06/27/18 14:05 06/27/18 15:46 Dexamethasone IVPUSH 06/27/18 14:06 8 mg ONETIME ONE Administration Sodium Chloride 1,000 mls @ 999 mls/hr 06/27/18 14:04 Normal Saline IV 06/27/18 15:04 .BOLUS ONE Lidocaine HCl Confirm 06/27/18 14:23 Xylocaine 1% Administered 06/27/18 14:24 Dose 20 ml .ROUTE .STK-MED ONE - Radiology Interpretation Free Text/Narrative:: Chest x-ray shows no acute cardiopulmonary process - Re-Assessments/Exams Free Text/Narrative Re-Assessment/Exam: 06/27/18 16:09 Patient afebrile, nontoxic appearing, vital signs stable. Patient feels better and coughing spells have resolved. [facility]iscussed with [facility] because of the patient's concern for medication cost, and was informed that the cost of Levaquin and prednisone was very reasonable. We'll therefore prescribe both. Patient will follow-up with Dr. Stewart in one week. Will return to emergency room sooner if symptoms continue or worsen. Departure - Departure Time of Disposition: 16:14 Disposition: Home, Self-Care 01 Condition: Fair Clinical Impression: Bronchitis - Discharge Information Instructions: Shortness of Breath, Adult, [id number], How to Use a Metered Dose Inhaler, Acute Bronchitis, Adult, [id number], Cough, Adult, [id number] Referrals: Skylar Garcia MD [Primary Care Provider] - Forms: ED Department Discharge Additional Instructions: Follow-up with Dr. Stewart in one week. Return to emergency department sooner if symptoms continue or worsen - My Orders Last 24 Hours: My Active Orders 06/27/18 13:47 Chest 2V [CR] Stat 06/27/18 14:04 Sodium Chloride 0.9% [Syrex Flush] 5 ml FLUSH Q8HR PRN Peripheral IV Insertion Adult [OM.PC] Urgent 06/27/18 14:05 Peripheral IV Care [RC] . DIRECTED 06/27/18 15:02 RT Aerosol Therapy [RC] ASDIRECTED - Assessment/Plan Last 24 Hours: My Active Orders 06/27/18 13:47 Chest 2V [CR] Stat 06/27/18 14:04 Sodium Chloride 0.9% [Syrex Flush] 5 ml FLUSH Q8HR PRN Peripheral IV Insertion Adult [OM.PC] Urgent 06/27/18 14:05 Peripheral IV Care [RC] . DIRECTED 06/27/18 15:02 RT Aerosol Therapy [RC] ASDIRECTED Assessment:: Bronchitis Plan: Follow-up with Dr. Stewart in one week
== END 2018-06-27 16:30 | disposition home or self-care (01) ==
LOC: KA.ED 13:30
DX: J40 Bronchitis, not specified as acute or chronic (principal); I10 Essential (primary) hypertension; E78.00 Pure hypercholesterolemia, unspecified; J44.9 Chronic obstructive pulmonary disease, unspecified; K21.9 Gastro-esophageal reflux disease without esophagitis; F41.9 Anxiety disorder, unspecified; F32.9 Major depressive disorder, single episode, unspecified; Z79.899 Other long term (current) drug therapy; Z79.82 Long term (current) use of aspirin
CPT/HCPCS: 36415; 71046; 80053; 83880; 85025; 94640; 96361; 96374; 99285; J1100; J7620-GY

== ENCOUNTER 2018-11-27 17:35 | Emergency (ER) | payer OTHER ==
[2018-11-27] MEDS ORDERED: Aspirin 81 MG Tab.Chew PO SCH (18:00)
--- NOTE | 2018-11-27 18:22 | EDM.PDOC ---
ED HPI GENERAL MEDICAL PROBLEM - General Chief Complaint: Chest Pain Stated Complaint: CHEST PAIN Time Seen by Provider: 11/27/18 18:00 Source of Information: Reports: Patient History Limitations: Reports: No Limitations - History of Present Illness INITIAL COMMENTS - FREE TEXT/NARRATIVE: Patient presents with fluid retention and two episodes of chest pain with dyspnea. The first episode was about 1:00 (5 hrs ago)and lasted 20-30 seconds, the second was 2 hours later and lasted 10-15 seconds. Both times the pain started in LUQ, moved across to RUQ and then up mid chest to behind left ear. Both times he felt dyspnea and diaphoresis. No episodes since then but he has a mild lingering pain in left neck to ear. He also reports a 17 pound wt gain likely to fluid retention in last week or so. Two weeks ago he was in and started on furosemide but after a week he stopped it because he felt better and now is filled up again. Mid-Sternal Chest Pain Score (Numeric/FACES): 2 - Related Data Allergies Allergy/AdvReac Type Severity Reaction Status Date / Time No Known Drug Allergies Allergy Cannot Verified 11/27/18 18:12 Remember Home Meds: Home Meds Carvedilol 25 mg PO BID 04/26/18 [History] DULoxetine HCl [Duloxetine HCl] 60 mg PO DAILY 04/26/18 [History] PARoxetine HCl [Paroxetine HCl] 20 mg PO DAILY 04/26/18 [History] Pantoprazole Sodium 40 mg PO ACBREAKFAST 04/26/18 [History] Ramipril 5 mg PO DAILY 04/26/18 [History] Rosuvastatin Calcium 10 mg PO DAILY 04/26/18 [History] Nitroglycerin [Nitrostat] 0.4 mg SL ASDIRECTED PRN #30 tab.sl 04/27/18 [Rx] Acetaminophen 1 cap PO Q6HR PRN 11/05/18 [History] QUEtiapine Fumarate [Quetiapine Fumarate] 1 tab PO BEDTIME 11/05/18 [History] Salmeterol Xinafoate [Serevent Diskus] 1 puff INH DAILY 11/05/18 [History] Tiotropium [Spiriva HandiHaler] 1 mcg INH DAILY 11/05/18 [History] Furosemide [Lasix] 40 mg PO DAILY 11/27/18 [History] Past Medical History HEENT History: Reports: Hard of Hearing, Impaired Vision Cardiovascular History: Reports: Bypass, Heart Murmur, High Cholesterol, Hypertension, SOB on Exertion, Other (See Below) Other Cardiovascular History: leaky valves x 3 Respiratory History: Reports: Bronchitis, Recurrent, COPD, Pneumonia, Recurrent , SOB Gastrointestinal History: Reports: Colon Polyp, GERD Genitourinary History: Reports: None Musculoskeletal History: Reports: Arthritis, Back Pain, Chronic, Fracture, Fibromyalgia Neurological History: Reports: Concussion, Neuropathy, Peripheral Psychiatric History: Reports: Anxiety, Depression Endocrine/Metabolic History: Reports: None Hematologic History: Reports: None Immunologic History: Reports: None Oncologic (Cancer) History: Reports: Hodgkin's Lymphoma, Other (See Below) Other Oncologic History: kidney cancer Dermatologic History: Reports: None - Infectious Disease History Infectious Disease History: Reports: Chicken Pox - Past Surgical History HEENT Surgical History: Reports: None Cardiovascular Surgical History: Reports: Coronary Artery Bypass Other Cardiovascular Surgeries/Procedures: CABG X 4 Respiratory Surgical History: Reports: None GI Surgical History: Reports: Appendectomy, Cholecystectomy, Colonoscopy Male Surgical History: Reports: Nephrectomy Other Male Surgeries/Procedures: right nephrectomy Endocrine Surgical History: Reports: None Neurological Surgical History: Reports: Lumbar Spine Musculoskeletal Surgical History: Reports: Carpal Tunnel Oncologic Surgical History: Reports: None Dermatological Surgical History: Reports: None Social & Family History - Family History Family Medical History: Unobtainable Cardiac: Reports: IN, Stent Respiratory: Reports: COPD Musculoskeletal: Reports: Arthritis, Fibromyalgia Neurological: Reports: Neuropathy, Peripheral Psychiatric: Reports: Depression Endocrine/Metabolic: Reports: Diabetes, type II Oncologic: Reports: Liver - Caffeine Use Caffeine Use: Reports: Coffee ED ROS GENERAL - Review of Systems Review Of Systems: See Below Constitutional: Reports: Diaphoresis (lightheaded). Denies: Fever, Weakness HEENT: Denies: Ear Pain, Throat Pain, Vision Change Respiratory: Reports: Shortness of Breath. Denies: Cough Cardiovascular: Reports: Chest Pain, Edema, Lightheadedness. Denies: Syncope GI/Abdominal: Reports: Abdominal Pain, Constipation, Distension, Other (passed stool twice today and some gas but less than usual). Denies: Black Stool, Bloody Stool, Diarrhea, Nausea, Vomiting : Denies: Dysuria, Flank Pain Musculoskeletal: Reports: Neck Pain. Denies: Shoulder Pain, Arm Pain, Back Pain , Hand Pain, Leg Pain, Foot Pain Skin: Denies: Cyanosis, Jaundice, Mottled, Pallor, Diaphoresis Neurological: Denies: Confusion, Dizziness, Headache, Seizure, Syncope, Trouble Speaking, Difficulty Walking Psychiatric: Denies: Agitation, Anxiety, Confusion ED EXAM, GENERAL - Physical Exam Exam: See Below Exam Limited By: No Limitations General Appearance: Alert, WD/WN, No Apparent Distress Eye Exam: Bilateral Eye: EOMI, Normal Inspection, PERRL Ears: Normal External Exam, Hearing Grossly Normal Nose: Normal Inspection, No Blood Throat/Mouth: Normal Inspection, Normal Lips, Normal Voice, No Airway Compromise Head: Atraumatic, Normocephalic Respiratory/Chest: No Respiratory Distress, No Accessory Muscle Use, Wheezing ( expiratory in right lung). No: Crackles, Rales, Rhonchi, Stridor Cardiovascular: Regular Rate, Rhythm, Systolic Murmur (present since 2004 per patient) GI/Abdominal: Normal Bowel Sounds, Non-Tender, Distended. No: Guarding, Rigid, Tender Back Exam: Normal Inspection, Full Range of Motion. No: CVA Tenderness (L), CVA Tenderness (R) Extremities: Normal Inspection, Normal Range of Motion, Non-Tender, No Pedal Edema Neurological: Alert, Oriented, Normal Cognition, No Motor/Sensory Deficits Psychiatric: Normal Affect, Normal Mood Skin Exam: Warm, Dry, Intact, Normal Color, No Rash Course - Vital Signs Last Recorded V/S: Last Vital Signs Temp 98.1 F 11/27/18 17:51 Pulse 104 H 11/27/18 18:45 Resp 18 11/27/18 18:45 BP 140/72 11/27/18 18:45 Pulse Ox 96 11/27/18 18:45 - Orders/Labs/Meds Orders: Active Orders 24 hr Category Date Time Status EKG Documentation Completion [RC] ASDIRECTED Care 11/27/18 18:07 Active Aspirin Med 11/27/18 18:00 Active 324 mg PO ONETIME EKG 12 Lead [EK] Routine Ther 11/27/18 18:00 Ordered Medication Orders Aspirin (Aspirin) 324 mg PO ONETIME [facility] Last Admin: 11/27/18 18:00 Dose: 324 mg Labs: Laboratory Tests 11/27/18 11/27/18 Range/Units 18:15 18:15 WBC 9.66 (5.00-10.00) 10^3/uL RBC 5.00 (4.50-6.00) 10^6/uL Hgb 15.6 D (13.0-17.0) g/dL Hct 46.3 (40.0-52.0) % MCV 92.6 H (82.0-92.0) fL MCH 31.2 H (27.0-31.0) pg MCHC 33.7 (32.0-36.0) g/dL RDW 13.4 (11.5-14.5) % Plt Count 418 H (150-400) 10^3/uL MPV 9.2 (7.4-10.4) fL Immature Gran % (Auto) 0.2 (0.0-5.0) % Neut % (Auto) 55.2 (50.0-70.0) % Lymph % (Auto) 29.3 (20.0-40.0) % Robeson % (Auto) 9.3 H (2.0-8.0) % Eos % (Auto) 5.3 H (1.0-3.0) % Baso % (Auto) 0.7 (0.0-1.0) % Immature Gran # (Auto) 0.02 (0.00-0.50) 10^3/uL Neut # (Auto) 5.33 (2.50-7.00) 10^3/uL Lymph # (Auto) 2.83 (1.00-4.00) 10^3/uL Robeson # (Auto) 0.90 H (0.10-0.80) 10^3/uL Eos # (Auto) 0.51 H (0.10-0.30) 10^3/uL Baso # (Auto) 0.07 (0.00-0.10) 10^3/uL Sodium 141 (136-145) mmol/L Potassium 4.4 (3.3-5.3) mmol/L Chloride 102 (98-115) mmol/L Carbon Dioxide 28.0 (21.0-32.0) mmol/L Anion Gap 15.4 H (5-15) mmol/L BUN 18 (6-25) mg/dL Creatinine 1.31 H (0.51-1.17) mg/dL Est Cr Clr Drug Dosing 69.93 mL/min Estimated GFR (MDRD) 57 mL/min Glucose 94 (75 - 99) mg/dL Calcium 9.2 (8.7-10.3) mg/dL Total Bilirubin 0.3 (0.2-1.0) mg/dL AST 14 L (15-37) U/L ALT 26 (12-78) U/L Alkaline Phosphatase 96 (46-116) IU/L Troponin I < 0.04 (0.00-0.070) ng/mL Total Protein 7.7 (6.4-8.2) g/dL Albumin 4.08 (3.00-4.80) g/dL Lipase 292 (73-393) U/L Meds: Medications Generic Name Dose Route Start Last Admin Trade Name Michaelq PRN Reason Stop Dose Admin Aspirin 324 mg 11/27/18 18:00 11/27/18 18:00 Aspirin PO 324 mg ONETIME TOM Administration - Re-Assessments/Exams Free Text/Narrative Re-Assessment/Exam: 11/27/18 19:18 Creatinine is up a tick at 1.31 compared to prior. Other labs are okay. CT shows no ascites or other causes of weight gain and distention. CXR good. Discussed findings and recommendations with patient. I suspect that the extra weight (likely fluid) is interstitial causing the moderate distention without pockets of fluid showing up. Ankles are slim too. Will plan on follow up with PCP and resume his lasix. Pt stable throughout ER course. Departure - Departure Time of Disposition: 19:22 Disposition: Home, Self-Care 01 Condition: Good Clinical Impression: Body fluid retention, Elevated serum creatinine Referrals: Skylar Garcia MD [Primary Care Provider] - Forms: ED Department Discharge Additional Instructions: 1. Resume the Lasix (furosemide) as directed. 2. Follow up with Dr. Grier in 2-3 days. - My Orders Last 24 Hours: My Active Orders 11/27/18 18:00 Aspirin 324 mg PO ONETIME EKG 12 Lead [EK] Routine 11/27/18 18:07 EKG Documentation Completion [RC] ASDIRECTED - Assessment/Plan Last 24 Hours: My Active Orders 11/27/18 18:00 Aspirin 324 mg PO ONETIME EKG 12 Lead [EK] Routine 01/13/19 18:07 EKG Documentation Completion [RC] ASDIRECTED
[2018-11-27 18:58] LABS: ANION GAP 15.4 mmol/L (5-15); CHLORIDE,CL 102 mmol/L (98-115); SODIUM,NA 141 mmol/L (136-145)
--- NOTE | 2018-11-27 19:12 | CT ---
[id number] CT/CT Abdomen Pelvis WO IV EXAM: CT Abdomen Pelvis WO IV CLINICAL DATA: ABDOMINAL DISTENTION COMPARISON STUDY: November 24, 2011. FINDINGS: Median sternotomy wires. The visualized lungs are clear. Coronary artery disease. The heart is stable in size and contour. Postsurgical changes following cholecystectomy, splenectomy and right nephrectomy. The liver is normal in size and contour. The pancreas and adrenal glands are unremarkable. Uptake nonobstructing left renal calculus. No hydronephrosis or hydroureter. No bowel obstruction or inflammation. No lymphadenopathy, free fluid, or pneumoperitoneum. Scattered changes of spondylosis the spine. No fracture or osseous lesion. IMPRESSION: No significant CT abnormality in the abdomen or pelvis to explain the patient's symptoms. No ascites. Zana Walker DO 11/27/18 [id number] Thank you for allowing us to participate in the care of your patient.
--- NOTE | 2018-11-27 19:13 | CR ---
[id number] RAD/RAD Chest PA And Lateral EXAM: RAD Chest PA And Lateral INDICATION: CHEST PAIN COMPARISON: June 27, 2018. DISCUSSION: Median sternotomy wires Cardiomediastinal silhouette is stable in size and contour. No infiltrate, effusion, or pneumothorax. Low lung volumes with associated vascular crowding. IMPRESSION: No acute cardiopulmonary findings. Zana Walker DO 11/27/18 1912 Thank you for allowing us to participate in the care of your patient.
== END 2018-11-27 19:40 | disposition home or self-care (01) ==
LOC: KA.ED 17:35
DX: R60.9 Edema, unspecified (principal); R79.89 Other specified abnormal findings of blood chemistry; I10 Essential (primary) hypertension; I25.10 Atherosclerotic heart disease of native coronary artery without angina pectoris; F17.210 Nicotine dependence, cigarettes, uncomplicated; F32.9 Major depressive disorder, single episode, unspecified; F41.9 Anxiety disorder, unspecified; Z79.899 Other long term (current) drug therapy; Z95.1 Presence of aortocoronary bypass graft
CPT/HCPCS: 36415; 71046; 74176; 80053; 83690; 84484; 85025; 93005; 99285; A9270; 99284

== ENCOUNTER 2020-06-18 07:31 | Day surgery (SDC) | payer MEDICARE, OTHER ==
[~2020-06-18 07:31] MED LIST: Propofol 200 MG/20 ML SDV ONE
[2020-06-18] MEDS ORDERED: Propofol 200 MG/20 ML SDV IV ONE (07:32)
[2020-06-18] MEDS ORDERED: Ketamine 200 MG/20 ML MDV IV ONE (07:32)
[2020-06-18] MEDS ORDERED: Midazolam 1 MG/ML 2 ML SDV IV ONE (07:32)
[2020-06-18] MEDS ORDERED: Sodium Chloride 0.9% 10 ML Syringe FLUSH PRN (07:45)
[2020-06-18] MEDS ORDERED: Lactated Ringers 1,000 ML IV SCH (07:45)
[2020-06-18] MEDS ORDERED: Propofol 200 MG/20 ML SDV ONE (08:29)
--- NOTE | 2020-06-18 09:02 | PCM.PN ---
- General Info Date of Service: 06/18/20 - Review of Systems Systems Review Comment:: 55-year-old male referred for EGD and colonoscopy. Patient has a history of worsening symptoms of acid reflux. Now requiring 2 omeprazole daily to control this. The patient is also experiencing a change in bowel pattern with increasing constipation over the last year. He is requiring daily stool softener to control this. Patient also notes a decrease in stool caliber. He denies any blood in his stool. Patient does have a known history of kidney cancer and lymphoma. His recent history and physical is reviewed and no significant changes are noted. I have discussed the proposed upper and lower endoscopy with the patient. Risks such as but not limited to bleeding and GI injury reviewed. He agrees to proceed. - Patient Data Vitals - Most Recent: Last Vital Signs Temp 97.3 F 06/18/20 07:39 Pulse 88 06/18/20 07:39 Resp 16 06/18/20 07:39 BP 120/76 06/18/20 07:39 Pulse Ox 93 L 06/18/20 07:39 Weight - Most Recent: 98.883 kg Med Orders - Current: Current Medications Lactated Ringer's (Ringers, Lactated) 1,000 mls @ 50 mls/hr IV ASDIRECTED TOM Sodium Chloride (Saline Flush) 10 ml FLUSH Q8HR PRN PRN Reason: keep vein open Discontinued Medications Propofol (Diprivan 20 Ml) Confirm Administered Dose 400 mg .ROUTE .STK-MED ONE Stop: 06/18/20 06:57 Sepsis Event Note - Focused Exam Vital Signs: Vital Signs Temp Pulse Resp BP Pulse Ox 06/18/20 07:39 97.3 F 88 16 120/76 93 L Date Exam was Performed: 06/18/20 Time Exam was Performed: 08:59 - Problem List Review Problem List Initiated/Reviewed/Updated: Yes - My Orders Last 24 Hours: My Active Orders 06/17/20 11:54 Resuscitation Status Routine 06/18/20 07:45 Peripheral IV Care [RC] . DIRECTED Lactated Ringers [Ringers, Lactated] 1,000 ml IV ASDIRECTED Sodium Chloride 0.9% [Saline Flush] 10 ml FLUSH Q8HR PRN Peripheral IV Insertion Adult [OM.PC] Routine 06/18/20 Breakfast Nothing Per Oral Diet [DIET] 06/18/20 08:45 Verify Patient Consent Obtain [RC] ASDIRECTED - Assessment Assessment:: Acid reflux Change in bowel pattern - Plan Plan:: EGD Colonoscopy
[2020-06-18] MEDS ORDERED: Ketamine 200 MG/20 ML MDV ONE (09:06)
[2020-06-18] MEDS ORDERED: Midazolam 1 MG/ML 2 ML SDV ONE (09:06)
[2020-06-18] MEDS ORDERED: Lactated Ringers 1,000 ML ONE (09:10)
--- NOTE | 2020-06-18 10:35 | PCM.OPNOTE ---
- General Post-Op/Procedure Note Date of Surgery/Procedure: 06/18/20 Operative Procedure(s): EGD with Biopsy and Colonoscopy with Polypectomy Findings: Reflux Esophagitis at GE Jct Mild Sigmoid Diverticulosis Multiple colon polyps Pre Op Diagnosis: Acid Reflux. Change in Bowel Habits Post-Op Diagnosis: Reflux Esophagitis. Sigmoid Diverticulosis. Colon Polyps Anesthesia Technique: [facility] [place] Primary Surgeon: Sarbjit Michaud Pathology: Biopsies of Duodenum, Gastric Antrum, Proximal Stomach, GE Jct and multiple colon polyps EBL in mLs: 3 Complications: None Condition: Good
[2020-06-18] MEDS ORDERED: Albuterol 0.083% 2.5 MG/3 ML Neb Soln NEB ONE (11:02)
--- NOTE | 2020-06-18 12:19 | OR ---
DATE OF SURGERY: 06/18/2020 SURGEON: Sarbjit Michaud MD PREOPERATIVE DIAGNOSIS: Acid reflux and change in bowel habits. POSTOPERATIVE DIAGNOSIS: Reflux esophagitis, sigmoid diverticulosis, multiple colon polyps. OPERATION PERFORMED: Esophagogastroduodenoscopy with biopsy and colonoscopy with polypectomy. INDICATIONS FOR SURGERY: This 55-year-old male has been having increasing symptoms of acid reflux requiring more medication. He also has noticed a change in bowel pattern with increased constipation. His last colonoscopy was approximately 20 years ago. FINDINGS: On upper endoscopy, the patient does have some ilee-bs-hferpogd inflammation at the GE junction. No ulcerations or bleeding is seen. There is no stenosis noted. The remainder of the gastric mucosa and duodenal mucosa appear normal. On colonoscopy, multiple polyps are noted. There is a cluster of two polyps that are 5-6 mm in size at the sigmoid level 15 cm from the anal verge. There is a 7 mm pedunculated polyp in the sigmoid colon, 40 cm from the anal verge. A 1 cm pedunculated polyp in the transverse colon and a 6 mm sessile polyp in the ascending colon. The patient also has a mild degree of sigmoid diverticulosis which does not appear to be complicated. No stenosis or narrowing is seen in the colon. DESCRIPTION OF PROCEDURE: The patient was taken to the operating room. He was given intravenous sedation and with him in the left lateral decubitus position, the Olympus gastroscope was advanced through a mouth guard into the oral cavity. This was then advanced down into the esophagus, stomach and on into the duodenum where examination to the 3rd portion is performed. The duodenal mucosa appeared normal. Random biopsies were taken of the duodenum because of the patient's symptoms. The scope was withdrawn back into the stomach where full examination including retroflexed examination of the fundus was performed. Random biopsies of the antrum as well as the proximal stomach were taken to rule out H pylori. The GE junction was carefully examined and with the inflammation noted here, biopsies were taken at the GE junction. The scope was then slowly withdrawn re- examining the esophagus and then it was removed. Attention was turned to colonoscopy. Digital rectal exam was performed. No rectal masses were noted. The Olympus colonoscope was inserted into the rectum. Retroflexed examination of the rectal canal is performed. The scope was then carefully advanced under direct visualization through the entire length of the colon until the cecum was reached. Cecal acquisition is confirmed by noting the normal internal cecal anatomy including the appendiceal orifice and ileocecal valve. The scope was then slowly withdrawn sequentially re-examining the colonic segments. As the above-described polyps are encountered, they are removed with a cautery snare and are each retrieved into a polyp trap. No sign of any complication was noted at the polypectomy sites during the exam. After the colonoscopy had been completed, the scope was removed and the patient was taken from the operating room in satisfactory condition. ESTIMATED BLOOD LOSS: 3 mL. COMPLICATIONS: None. PROGNOSIS: Good. /[id number]/MODL
== END 2020-06-18 12:15 | disposition home or self-care (01) ==
LOC: KA.SDS 07:31
PROVIDERS: ATTEND Surgery
DX: D12.2 Benign neoplasm of ascending colon (principal); D12.3 Benign neoplasm of transverse colon; D12.5 Benign neoplasm of sigmoid colon; K29.50 Unspecified chronic gastritis without bleeding; K31.89 Other diseases of stomach and duodenum; K21.0 Gastro-esophageal reflux disease with esophagitis; K57.30 Diverticulosis of large intestine without perforation or abscess without bleeding; F17.200 Nicotine dependence, unspecified, uncomplicated; G47.30 Sleep apnea, unspecified; I50.30 Unspecified diastolic (congestive) heart failure; J44.9 Chronic obstructive pulmonary disease, unspecified; Z98.890 Other specified postprocedural states; Z79.82 Long term (current) use of aspirin; Z79.899 Other long term (current) drug therapy
CPT/HCPCS: 00813; 43239; 45385; 94640; J2250; J2704; J7120; 88305; J7613-GY

== ENCOUNTER 2021-11-01 10:54 | Emergency (ER) | payer MEDICARE ==
[2021-11-01] MEDS ORDERED: Ibuprofen 600 MG Tab PO ONE (11:06)
--- NOTE | 2021-11-01 11:07 | EDM.PDOC ---
ED HPI GENERAL MEDICAL PROBLEM - General Chief Complaint: General Stated Complaint: COUGH/SHORTNESS OF BREATH Time Seen by Provider: 11/01/21 11:00 Source of Information: Reports: Patient History Limitations: Reports: No Limitations - History of Present Illness INITIAL COMMENTS - FREE TEXT/NARRATIVE: 56 YO WM PRESENTS TO ER WITH 1 WEEK HISTORY OF COUGH/CONGESTION AND BODY ACHES. PT REPORTS HE HAS BEEN DOING OKAY WITH MANAGEMENT OF HIS SYMPTOMS BU HAS BECOME INCREASINGLY SHORT OF BREATH PROMPTING ER EVALUATION. PT HAS HISTORY OF COPD AND HAS BEEN USING HIS ALBUTEROL HFA WITH GOOD RELIEF OF SYMPTOMS. PT REPORTS HE WAS IMMUNIZED 02/2021 WITH MODERNA VACCINE. PT DENIES CHEST PAIN, NO N/V/D. PT REPORTS LOSS OF TASTE AND SMELL BUT STATES HE HAS BEEN EATING/DRINKING FAIRLY WELL. Duration: Week(s): (1) Location: Reports: Generalized Quality: Reports: Ache Severity: Mild Improves with: Reports: None Worsens with: Reports: None Associated Symptoms: Reports: Cough, Fever/Chills, Malaise, Shortness of Breath. Denies: Chest Pain, Nausea/Vomiting, Syncope Treatments HOSPITAL PHARMACIST: Reports: Acetaminophen, Breathing Treatments - Related Data Allergies Allergy/AdvReac Type Severity Reaction Status Date / Time No Known Drug Allergies Allergy Cannot Verified 11/01/21 11:10 Remember Home Meds: Home Meds DULoxetine HCl [Duloxetine HCl] 120 mg PO DAILY 04/26/18 [History] Ramipril 2.5 mg PO DAILY 04/26/18 [History] Rosuvastatin Calcium 10 mg PO BEDTIME 04/26/18 [History] carvediloL [Carvedilol] 12.5 mg PO BID 04/26/18 [History] Nitroglycerin [Nitrostat] 0.4 mg SL ASDIRECTED PRN #30 tab.sl 04/27/18 [Rx] Tiotropium [Spiriva HandiHaler] 1 cap INH DAILY 11/05/18 [History] Furosemide [Lasix] 40 mg PO QAM PRN 11/27/18 [History] Albuterol [Ventolin HFA] 1 - 2 puff INH Q4HR PRN 06/17/20 [History] Aspirin [Lo-Dose Aspirin EC] 81 mg PO DAILY 06/17/20 [History] Ipratropium/Albuterol Sulfate [Iprat-Albut 0.5-3(2.5) mg/3 ml] 1 ampule NEB Q4H PRN 06/17/20 [History] Pregabalin [Lyrica] 150 mg PO TID 06/17/20 [History] Lansoprazole [Prevacid] 30 mg PO BID 11/01/21 [History] Mometasone/Formoterol [Dulera 200 MCG/5 MCG] 1 puff INH BID 11/01/21 [History] Naloxegol Oxalate [Movantik] 25 mg PO DAILY 11/01/21 [History] amLODIPine Besylate [Amlodipine Besylate] 5 mg PO DAILY 11/01/21 [History] buPROPion HCL [Bupropion Xl] 300 mg PO DAILY 11/01/21 [History] oxyCODONE HCl/Acetaminophen [Oxycodone-Acetaminophen 5-325] 1 each PO BID 11/01/21 [History] predniSONE [Prednisone] 50 mg PO DAILY #5 tablet 11/01/21 [Rx] Past Medical History HEENT History: Reports: Hard of Hearing, Impaired Vision Cardiovascular History: Reports: Bypass, CAD, Heart Murmur, High Cholesterol, Hypertension, SOB on Exertion, Other (See Below) Other Cardiovascular History: leaky valves x 3 Respiratory History: Reports: Bronchitis, Recurrent, COPD, Pneumonia, Recurrent, SOB Gastrointestinal History: Reports: Cholelithiasis, Chronic Constipation, Colon Polyp, GERD Genitourinary History: Reports: None Musculoskeletal History: Reports: Arthritis, Back Pain, Chronic, Fracture, Fibromyalgia, Osteoarthritis Neurological History: Reports: Concussion, Neuropathy, Peripheral Psychiatric History: Reports: Addiction, Anxiety, Depression Endocrine/Metabolic History: Reports: None Hematologic History: Reports: None Immunologic History: Reports: None Oncologic (Cancer) History: Reports: Hodgkin's Lymphoma, Other (See Below) Other Oncologic History: kidney cancer Dermatologic History: Reports: None - Infectious Disease History Infectious Disease History: Reports: Chicken Pox - Past Surgical History HEENT Surgical History: Reports: None Cardiovascular Surgical History: Reports: Coronary Artery Bypass Other Cardiovascular Surgeries/Procedures: CABG X 4 Respiratory Surgical History: Reports: None GI Surgical History: Reports: Appendectomy, Cholecystectomy, Colonoscopy Male Surgical History: Reports: Nephrectomy Other Male Surgeries/Procedures: right nephrectomy Endocrine Surgical History: Reports: None Neurological Surgical History: Reports: Discectomy, Lumbar Spine Musculoskeletal Surgical History: Reports: Carpal Tunnel Oncologic Surgical History: Reports: None Dermatological Surgical History: Reports: None Social & Family History - Family History Family Medical History: Unobtainable Cardiac: Reports: SC, Stent Respiratory: Reports: COPD Musculoskeletal: Reports: Arthritis, Fibromyalgia Neurological: Reports: Neuropathy, Peripheral Psychiatric: Reports: Depression Endocrine/Metabolic: Reports: Diabetes, type II Oncologic: Reports: Liver - Caffeine Use Caffeine Use: Reports: Coffee ED ROS GENERAL - Review of Systems Review Of Systems: See Below Constitutional: Reports: Fever, Chills, Malaise HEENT: Reports: Rhinitis Respiratory: Reports: Shortness of Breath, Cough Cardiovascular: Reports: No Symptoms Endocrine: Reports: No Symptoms GI/Abdominal: Reports: No Symptoms : Reports: No Symptoms Musculoskeletal: Reports: No Symptoms Skin: Reports: No Symptoms Neurological: Reports: No Symptoms Psychiatric: Reports: No Symptoms Hematologic/Lymphatic: Reports: No Symptoms Immunologic: Reports: No Symptoms ED EXAM, GENERAL - Physical Exam Exam: See Below Exam Limited By: No Limitations General Appearance: Alert, WD/WN, No Apparent Distress Ears: Normal External Exam, Normal Canal, Hearing Grossly Normal, Normal TMs Nose: Clear Rhinorrhea Throat/Mouth: Normal Inspection, Normal Lips, Normal Teeth, Normal Gums, Normal Oropharynx, Normal Voice, No Airway Compromise Head: Atraumatic, Normocephalic Neck: Normal Inspection, Supple, Non-Tender, Full Range of Motion Respiratory/Chest: No Respiratory Distress, Lungs Clear, Normal Breath Sounds, No Accessory Muscle Use, Chest Non-Tender Cardiovascular: Normal Peripheral Pulses, Regular Rate, Rhythm, No Edema, No Gallop, No JVD, No Murmur, No Rub GI/Abdominal: Normal Bowel Sounds, Soft, Non-Tender, No Organomegaly, No Distention, No Abnormal Bruit, No Mass Back Exam: Normal Inspection, Full Range of Motion, NT Extremities: Normal Inspection, Normal Range of Motion, Non-Tender, Normal Capillary Refill, No Pedal Edema Neurological: Alert, Oriented, CN II-XII Intact, Normal Cognition, Normal Gait, No Motor/Sensory Deficits Psychiatric: Normal Affect, Normal Mood Skin Exam: Warm, Dry, Intact, Normal Color, No Rash Lymphatic: No Adenopathy Course - Vital Signs Last Recorded V/S: Last Vital Signs Temp 96.8 F L 11/01/21 11:52 Pulse 106 H 11/01/21 11:04 Resp 20 11/01/21 11:04 BP 114/81 11/01/21 11:04 Pulse Ox 95 11/01/21 11:04 - Orders/Labs/Meds Orders: Active Orders 24 hr Category Date Time Status Chest 1V Frontal [CR] Stat Exams 11/01/21 11:05 Ordered Labs: Laboratory Tests 11/01/21 Range/Units 11:00 SARS CoV-2 RNA Rapid CAIT Positive H (NEGATIVE) Meds: Medications Discontinued Medications Generic Name Dose Route Start Last Admin Trade Name Jean Carlos PRN Reason Stop Dose Admin Dexamethasone 10 mg 11/01/21 11:31 11/01/21 11:53 Dexamethasone 4 Mg/Ml Sdv IM 11/01/21 11:32 10 mg ONETIME ONE Administration Ibuprofen 600 mg 11/01/21 11:06 11/01/21 11:52 Ibuprofen 600 Mg Tab PO 11/01/21 11:07 600 mg ONETIME ONE Administration - Radiology Interpretation Free Text/Narrative:: CXR- NAD Departure - Departure Time of Disposition: 11:55 Disposition: Home, Self-Care 01 Condition: Fair Clinical Impression: COVID-19 - Discharge Information Prescriptions: predniSONE [Prednisone] 50 mg PO DAILY #5 tablet Instructions: 10 Things You Can Do to Manage Your COVID-19 Symptoms at Home - [facility] (05/30/2021) Referrals: Skylar Garcia MD [Primary Care Provider] - Forms: ED Department Discharge Additional Instructions: 1. DISCHARGE HOME 2. RECOMMEND TYLENOL 1000MG EVERY 6 HOURS FOR FEVER/BODY ACHES 3. MOTRIN 600MG EVERY 6 HOURS NEEDED FOR BODY ACHES/FEVER 4. ZINC 50MG DAILY 5. VITAMIN C 1000MG DAILY 6. VITAMIN D 50OO IU DAILY 7. ZYRTEC 10MG DAILY FOR COUGH/CONGESTION 8. PREDNISONE 50MG DAILY WITH FOOD X 5 DAYS 9. CONTINUE ALBUTEROL INHALER EVERY 4 HOURS AND NEEDED Sepsis Event Note (ED) - Focused Exam Vital Signs: Vital Signs Temp Temp Pulse Resp BP Pulse Ox 11/01/21 11:52 96.8 F L 11/01/21 11:04 96.8 F L 106 H 20 114/81 95 - My Orders Last 24 Hours: My Active Orders 11/01/21 11:05 Chest 1V Frontal [CR] Stat - Assessment/Plan Last 24 Hours: My Active Orders 11/01/21 11:05 Chest 1V Frontal [CR] Stat Assessment:: 1. COVID-19 INFECTION WITHOUT PNEUMONIA OR HYPOXEMIA Plan: 1. DISCHARGE HOME 2. RECOMMEND TYLENOL 1000MG EVERY 6 HOURS FOR FEVER/BODY ACHES 3. MOTRIN 600MG EVERY 6 HOURS NEEDED FOR BODY ACHES/FEVER 4. ZINC 50MG DAILY 5. VITAMIN C 1000MG DAILY 6. VITAMIN D 50OO IU DAILY 7. ZYRTEC 10MG DAILY FOR COUGH/CONGESTION 8. PREDNISONE 50MG DAILY WITH FOOD X 5 DAYS 9. CONTINUE ALBUTEROL INHALER EVERY 4 HOURS AND NEEDED
[2021-11-01] MEDS ORDERED: Dexamethasone 4 MG/ML SDV IM ONE (11:31)
--- NOTE | 2021-11-01 12:06 | CR ---
[id number] RAD/RAD Chest PA or AP 1V EXAM: RAD Chest PA or AP 1V INDICATION: SHORTNESS OF BREATH. COMPARISON: November 2019. DISCUSSION/IMPRESSION: Median sternotomy. Clips project over the left heart border. No change from the prior examination. Heart is normal in size. Subtle linear somewhat nodular areas of opacification in both lung bases. This is increased in appearance compared to the prior examination. Findings are nonspecific and can be seen with interstitial pneumonitis or pneumonia. No pleural effusion or pneumothorax. Ean Santos MD 11/01/21 1939 Thank you for allowing us to participate in the care of your patient.
== END 2021-11-01 12:25 | disposition home or self-care (01) ==
LOC: KA.ED 10:54
DX: U07.1 COVID-19 (principal); I10 Essential (primary) hypertension; E78.00 Pure hypercholesterolemia, unspecified; I25.10 Atherosclerotic heart disease of native coronary artery without angina pectoris; Z79.82 Long term (current) use of aspirin; Z79.899 Other long term (current) drug therapy; Z90.49 Acquired absence of other specified parts of digestive tract
CPT/HCPCS: 71045; 96372; 99283-25; 99284; A9270-GY; J1100; U0002